=== PATIENT | male | born 1980 | race Caucasian/White ===

== ENCOUNTER 2020-08-26 12:59 | Emergency (ER) | payer OTHER ==
--- NOTE | 2020-08-26 13:20 | EDM.PDOC ---
ED HPI GENERAL MEDICAL PROBLEM - General Chief Complaint: Chest Pain Stated Complaint: SHORTNESS OF BREATH, CHEST PAIN Time Seen by Provider: 08/26/20 13:30 Source of Information: Reports: Patient, EMS, Old Records, RN History Limitations: Reports: No Limitations - History of Present Illness INITIAL COMMENTS - FREE TEXT/NARRATIVE: 40 yo male presents via EMS for what felt like a panic attack. He admits that he has been up working for 24 hrs and drinking a lot of caffeine containing beverages. Arrives via EMS. Is feeling better on arrival. No meds given per EMS. No hx of CAD. Has a hx of PTSD and anxiety. Onset: Today, Gradual Onset Date: 08/26/20 Duration: Minutes:, Improving Location: Reports: Generalized Quality: Reports: Other Severity: Mild Improves with: Reports: Other (time) Worsens with: Reports: Other (? caffeine intake) Context: Reports: Other (See HPI) Associated Symptoms: Reports: No Other Symptoms Treatments [employer]: Reports: Other (see below) (none) - Related Data Allergies Allergy/AdvReac Type Severity Reaction Status Date / Time No Known Allergies Allergy Verified 08/26/20 13:02 Home Meds: Home Meds Albuterol Sulfate [Proair Hfa] 0 puff INH ASDIRECTED 08/26/20 [History] Budesonide/Formoterol [Symbicort 80-4.5 MCG] 1 puff INH BID 08/26/20 [History] Montelukast Sodium [Singulair] 10 mg PO DAILY 08/26/20 [History] Past Medical History Psychiatric History: Reports: Anxiety, PTSD - Past Surgical History HEENT Surgical History: Reports: Naso-Sinus Surgery GI Surgical History: Reports: Colonoscopy Male Surgical History: Reports: Vasectomy Other Male Surgeries/Procedures: vasectomy reverseral Musculoskeletal Surgical History: Reports: Arthroscopic Knee, Arthroscopic Procedure Social & Family History - Tobacco Use Smoking Status *Q: Current Every Day Smoker Years of Tobacco use: 20 Packs/Tins Daily: 3 - Caffeine Use Caffeine Use: Reports: Energy Drinks, Soda - Recreational Drug Use Recreational Drug Use: No ED ROS GENERAL - Review of Systems Review Of Systems: See Below Constitutional: Reports: No Symptoms HEENT: Reports: No Symptoms Respiratory: Reports: Shortness of Breath Cardiovascular: Reports: Chest Pain (transient, now resolved) Endocrine: Reports: No Symptoms GI/Abdominal: Reports: No Symptoms : Reports: No Symptoms Musculoskeletal: Reports: No Symptoms Skin: Reports: No Symptoms ED EXAM, GENERAL - Physical Exam Exam: See Below Exam Limited By: No Limitations General Appearance: Alert, WD/WN, No Apparent Distress Eye Exam: Bilateral Eye: Normal Inspection Ears: Normal External Exam, Normal Canal, Hearing Grossly Normal, Normal TMs Ear Exam: Bilateral Ear: Auricle Normal, Canal Normal Nose: Normal Inspection, No Blood Throat/Mouth: Normal Inspection, Normal Lips, Normal Oropharynx, Normal Voice, No Airway Compromise Head: Atraumatic Neck: Normal Inspection Respiratory/Chest: No Respiratory Distress, Lungs Clear, Normal Breath Sounds Cardiovascular: Regular Rate, Rhythm, No Edema GI/Abdominal: Normal Bowel Sounds, Soft, Non-Tender, No Distention Back Exam: Normal Inspection Neurological: Alert, Oriented, CN II-XII Intact, Normal Cognition, No Motor/Sensory Deficits Psychiatric: Normal Affect, Normal Mood Skin Exam: Warm, Dry, Intact, Normal Color, No Rash EKG INTERPRETATION EKG Date: 08/26/20 Time: 12:30 Rhythm: NSR Rate (Beats/Min): 85 [place]: Normal P-Wave: Present QRS: Normal ST-T: Normal QT: Normal Comparison: NA - No Prior EKG Course - Vital Signs Last Recorded V/S: Last Vital Signs Temp 36.7 C 08/26/20 13:10 Pulse 79 08/26/20 13:10 Resp 20 08/26/20 13:10 BP 135/79 08/26/20 13:10 Pulse Ox 98 08/26/20 13:10 - Orders/Labs/Meds Orders: Active Orders 24 hr Category Date Time Status Cardiac Monitoring [RC] .As Directed Care 08/26/20 13:14 Active EKG Documentation Completion [RC] ASDIRECTED Care 08/26/20 13:14 Active EKG 12 Lead [EK] Routine Ther 08/26/20 13:14 Stop Req Departure - Departure Time of Disposition: 13:47 Disposition: Home, Self-Care 01 Condition: Good Clinical Impression: Caffeine adverse reaction Qualifiers: Encounter type: initial encounter Qualified Code(s): T43.615A - Adverse effect of caffeine, initial encounter Referrals: PCP,None [Primary Care Provider] - Forms: ED Department Discharge Additional Instructions: Reduce caffeine. Drink more water. Get some sleep. Recheck as needed. Sepsis Event Note (ED) - Evaluation Sepsis Screening Result: No Definite Risk - Focused Exam Vital Signs: Vital Signs Temp Pulse Resp BP Pulse Ox 08/26/20 13:10 36.7 C 79 20 135/79 98 - My Orders Last 24 Hours: My Active Orders 08/26/20 13:14 Cardiac Monitoring [RC] .As Directed EKG Documentation Completion [RC] ASDIRECTED EKG 12 Lead [EK] Routine - Assessment/Plan Last 24 Hours: My Active Orders 08/26/20 13:14 Cardiac Monitoring [RC] .As Directed EKG Documentation Completion [RC] ASDIRECTED EKG 12 Lead [EK] Routine
== END 2020-08-26 14:00 | disposition home or self-care (01) ==
LOC: JP.ED 12:59
DX: F41.0 Panic disorder [episodic paroxysmal anxiety] (principal); T43.615A Adverse effect of caffeine, initial encounter; F17.210 Nicotine dependence, cigarettes, uncomplicated; Z79.899 Other long term (current) drug therapy
CPT/HCPCS: 93005; 99283; 99285-25